=== PATIENT | female | born 1935 | race Caucasian/White ===

== ENCOUNTER 2023-05-23 07:00 | Emergency (ER) | payer OTHER, MEDICARE ==
[2023-05-23 07:15] VITALS: BP 147/94; PULSE 82; RESP 16; TEMP 97.5; BMI 27.9
[2023-05-23] MEDS ORDERED: ACETAMINOPHEN 325 MG TABLET (FP) PO ONE (07:16)
== END 2023-05-23 07:54 | disposition home or self-care (01) ==
LOC: FER 07:00
PROC: 2W3GX1Z Immobilization of Right Thumb using Splint (ICD-10-PCS; principal; 2023-05-23)
DX: S60.931A Unspecified superficial injury of right thumb, initial encounter (principal); W23.1XXA Caught, crushed, jammed, or pinched between stationary objects, initial encounter
CPT/HCPCS: 73140-TC-RT-FY; 99283-25